=== PATIENT | female | born 1990 | race Caucasian/White ===

== ENCOUNTER 2024-12-28 09:14 | Outpatient (CLI) | payer BC, SELFPAY ==
[2024-12-28 10:58] LABS: Thyroid Stimulating Hormone 2.300 uIU/mL (0.465-4.680)
[2024-12-29 08:09] LABS: LH 6.2 mIU/mL (.)
[2024-12-29 11:08] LABS: FSH 6.8 mIU/mL (.)
[2024-12-31 10:08] LABS: Free Testosterone (Direct) 0.3 pg/mL (0.0-4.2)
[2025-01-01 16:08] LABS: Estradiol, Sensitive 96.8 pg/mL (.)
== END 2024-12-28 09:15 | disposition home or self-care (01) ==
PROVIDERS: Visit Provider Student in an Organized Health Care Education/Training Program
DX: N91.2 Amenorrhea, unspecified (principal)
CPT/HCPCS: 36415; 82166; 82670; 83001; 83002; 84402; 84443